=== PATIENT | female | born 1990 ===

== ENCOUNTER → 2020-02-12 | Outpatient (CLI) | payer OTHER | END | disposition home or self-care (01) | LOC: PRENATAL 02-04 09:30 | PROVIDERS: ATTEND Obstetrics & Gynecology Maternal & Fetal Medicine | DX: O34.211 Maternal care for low transverse scar from previous cesarean delivery (principal); O35.0XX1 Maternal care for (suspected) central nervous system malformation in fetus, fetus 1; O99.89 Other specified diseases and conditions complicating pregnancy, childbirth and the puerperium; O35.3XX1 Maternal care for (suspected) damage to fetus from viral disease in mother, fetus 1; O98.512 Other viral diseases complicating pregnancy, second trimester; O99.212 Obesity complicating pregnancy, second trimester; Z36.89 Encounter for other specified antenatal screening; Z3A.25 25 weeks gestation of pregnancy ==